=== PATIENT | male | born 1940 | race Caucasian/White ===

== ENCOUNTER 2018-11-16 08:45 | Inpatient (IN) | payer MEDICARE, BC | END 2018-11-19 11:50 | disposition home or self-care (01) | LOC: PAS IN 08:45 → ORTHO 4S 15:25 | DX: M16.11 Unilateral primary osteoarthritis, right hip (principal); D62 Acute posthemorrhagic anemia; I48.2 Chronic atrial fibrillation; Z79.01 Long term (current) use of anticoagulants ==

== ENCOUNTER 2019-03-03 08:50 | Outpatient (CLI) | payer MEDICARE, BC ==
[~2019-03-03 08:50] MED LIST: ACET-1008 PO; BENA1TAB13 PO; DABI75CA3 PO; METF1000 PO; METO50TA7 PO; PIOG30TA71 PO; SIMV10TA6 PO
== END 2019-03-03 23:59 | disposition home or self-care (01) ==
LOC: VAS 08:50
PROVIDERS: ATTEND Pediatrics Sports Medicine
DX: M79.661 Pain in right lower leg (principal); R60.0 Localized edema; M16.11 Unilateral primary osteoarthritis, right hip; I10 Essential (primary) hypertension; E11.9 Type 2 diabetes mellitus without complications
CPT/HCPCS: 93971

== ENCOUNTER 2025-08-08 16:15 | Emergency (ER) | payer MEDICARE, BC ==
[~2025-08-08] VITALS: Ht 170.2 cm; Wt 101.0 kg
[~2025-08-08 16:15] MED LIST changes: -BENA1TAB13 PO; +BENA1TAB86 PO; -SIMV10TA6 PO; +SIMV10TA98 PO
[2025-08-08] MEDS: LIDOcaine 2% Viscous 15ml cup MM ONE (16:34)
[2025-08-08] MEDS: mag hydrox/Alum hydrox/simeth 30ml oral suspension PO ONE (16:35)
--- NOTE | 2025-08-08 16:50 | ELECTROCARDIOGRAPH REPORT ---
[facility] Test Date: 2025-08-08 Test Time: 16:48:03 Pat Name: JOSELITO DELUNA Department: [facility]- Patient ID: [facility]-[id number] Room: Gender: M Hydraulic Repairer: : 1940 Requested By: LYNN CHUNG Order Number: [id number] Reading MD: Dr. Naman Pollard Measurements Intervals [place] Rate: 67 P: 0 AR: 0 QRS: -60 QRSD: 124 T: 45 QT: 436 QTc: 461 Interpretive Statements Atrial fibrillation RBBB and LAFB Electronically Signed On 08-08-2025 20:35:[address] Naman Pollard Please click the below link to view image of tracing.
[2025-08-08 17:00] LABS: MEAN PLATELET VOLUME 8.1 FL (7.4-10.4); RED CELL DISTRIBUTION WIDTH 14.7 % (11.5-14.5)
[2025-08-08 17:12] LABS: CREATININE 1.65 MG/DL (0.60-1.10); TOTAL CARBON DIOXIDE 29.8 MMOL/L (24-32); eCRCL 31 ML/MIN; eGFR 40 ML/MIN
[2025-08-08] MEDS ORDERED: iohexol 300mg/ml 100ml inj. ONE (17:12)
--- NOTE | 2025-08-08 18:09 | Physician Documentation ---
History of Present Illness ~ Chief Complaint: Abdominal Pain Stated Complaint: ABDOMINAL PAIN Time Seen by MD: 18:04 Mode of Arrival: EMS HPI Patient presents to the emergency room for evaluation of epigastric pain. No prior history. Pain had resolved by the time he made it to the emergency room by EMS. He reports regular bowel movements. Patient did state he took some Apple s and feels it may have relieved his symptoms. Denies chest pain. Medication Reconciliation Allergies: Coded Allergies: No Known Allergies (Unverified , 08/08/25) Scheduled Acetaminophen (Tylenol), 650 MG PO Q4H PRN PAIN, (Reported) Benazepril/Hydrochlorothiazide (Benazepril-Hctz 10-12.5 mg Tab), 1 TAB PO DAILY, (Reported) Dabigatran* (PRADAXA capsule*), 2 CAP PO BID, (Reported) Metformin Hcl* (Glucophage*), 1 TAB PO Q12H, (Reported) Metoprolol Succinate* (Toprol Xl*), 1 TAB PO DAILY, (Reported) Pioglitazone Hcl (Pioglitazone Hcl), 1 TAB PO DAILY, (Reported) Simvastatin (Simvastatin), 1 TAB PO DAILY, (Reported) Review of Systems All Other Systems at this time: Reviewed and Negative Physical Exam Vital Signs: Temperature: 97.6, Source: Oral, Heart Rate: 71, Respiratory Rate: 18, BP: 164/82, Pulse Oximetry: 98, Weight: 101.000 Physical Exam General: Patient is awake, alert, oriented x4 in no acute distress and well appearing.~ Head: Normocephalic and atraumatic. Eyes: Conjunctival normal. EOMI. PERRL. ENT: Mucous membranes moist. Neck: Supple, trachea is midline. Chest: Clear to auscultation bilaterally without rales, rhonchi, or wheezes. There is no accessory muscle use or retractions. Cardiac: RRR without murmurs, gallops, or rubs. Abd: Soft, nondistended, nontender, with normoactive bowel sounds. No guarding, rebound, or rigidity. Progress Progress Note Attend to MRCP failed that has patient was not able to tolerate the MRI machine Results/Orders Results/Orders Orders - MELCHOR FRENCH MD Ultrasound Of Abdomen (08/08/25 18:15) MRCP (08/08/25 18:30) Zosyn 3.375 Gm In 50ml Ns (08/08/25 21:25) Completed Orders - MELCHOR FRENCH MD Ultrasound Of Abdomen (08/08/25 18:15) CMP (08/08/25 19:32) Medications Received in ER Medications (Trade) Dose Ordered Sig/Padma Route PRN Reason Start Time Stop Time Status Last Admin Dose Admin (Maalox oral suspension) 30 ml ONCE ONCE PO 08/08/25 16:30 08/08/25 16:31 DC 08/08/25 16:35 30 ML (Bentyl capsule) 20 mg ONCE ONCE PO 08/08/25 16:30 08/08/25 16:31 DC 08/08/25 16:35 20 MG (Xylocaine 2% Viscous 15mL cup) 20 ml ONCE ONCE MM 08/08/25 16:30 08/08/25 16:31 DC 08/08/25 16:34 20 ML Vital Signs 08/08/25 08/08/25 08/08/25 08/08/25 16:20 17:59 19:35 20:28 Temp 97.6 97.6 97.6 Pulse 67 71 70 68 Resp 20 18 18 14 B/P (MAP) 157/70 164/82 (109) 155/78 (103) 166/77 (106) Pulse Ox 96 98 96 96 O2 Flow Rate 0 0 Laboratory Tests Test 08/08/25 16:24 08/08/25 17:52 08/08/25 18:21 08/08/25 20:05 White Blood Count 6.6 Red Blood Count 4.17 L Hemoglobin 14.4 Hematocrit 41.3 L Mean Corpuscular Volume 98.8 H Mean Corpuscular Hemoglobin 34.5 H Mean Corpuscular Hemoglobin Concent 34.9 Red Cell Distribution Width 14.7 H Platelet Count 168 Mean Platelet Volume 8.1 Neutrophils (%) (Auto) 65.8 Lymphocytes (%) (Auto) 21.5 Monocytes (%) (Auto) 9.0 Eosinophils (%) (Auto) 2.8 Basophils (%) (Auto) 0.9 Neutrophils # (Auto) 4.3 Lymphocytes # (Auto) 1.4 Monocytes # (Auto) 0.6 Eosinophils # (Auto) 0.2 Basophils # (Auto) 0.1 CBC Comment Sodium Level 137 137 Potassium Level 4.1 3.9 Chloride Level 101 102 Carbon Dioxide Level 29.8 27.1 Anion Gap 6 L 8 Blood Urea Nitrogen 25 H 24 H Creatinine 1.65 H 1.55 H Estimated GFR/1.73 m2 40 43 BUN/Creatinine Ratio 15.2 15.5 Glucose Level 134 H 115 H Calcium Level 9.1 8.9 Total Bilirubin 2.8 H 2.6 H Aspartate Amino Transf (AST/SGOT) 44 H 61 H Alanine Aminotransferase (ALT/SGPT) 25 40 Alkaline Phosphatase 105 107 Troponin I High Sensitivity 28 29 Total Protein 8.1 7.7 Albumin 3.9 3.7 Globulin 4.2 4.0 Albumin/Globulin Ratio 0.9 L 0.9 L Amylase Level 67 Lipase 38 Chemistry Comments Urine Specimen Description Cln catch midstream Urine Color Yellow Urine Clarity Clear Urine pH 5.5 Urine Specific [place] 1.020 Urine Protein Trace Urine Glucose (UA) >=1000 H Urine Ketones Negative Urine Occult Blood Negative Urine Nitrite Negative Urine Bilirubin Negative Urine Urobilinogen 0.2 Urine Leukocyte Esterase Negative Urine RBC 0-2 Urine WBC 0-4 Urine Squamous Epithelial Cells Few Urine Bacteria None seen Urine Mucus Few Urine Culture Indicated Not ind Volume Urine Centrifuged 10 ml Urine Comment Troponin I High Sens Percent Delta 3 Troponin I Hi Sens Absolute Change 1 EKG/XRAY/CT/US/VASC/MRI EKG : Additional Comment EKG interpreted by myself shows time of 1648, rate 67, sinus rhythm, left axis deviation, no ST changes Medical Decision Making Additional information obtaine: old records Findings Patient continues to be pain-free. He presented to the emergency room with abdominal pain. Differentials include but are not limited to gastritis cholecystitis diverticulitis small-bowel obstruction pancreatitis therefore emergent labs and imaging ordered. CT scan shows common bile duct dilation therefore ultrasound and MRCP were ordered. Ultrasound was negative for cholecystitis but did show a dilated common bile duct. MRCP was attempted however patient was unable to tolerate MRCP. As patient is pain-free the thought that patient may have passed the stone given the location seen on CT therefore repeat CMP was performed which shows a decreasing bilirubin. This combined with the patient's lack of any discomfort I feel the patient's common bile duct stone that has passed. Patient feels comfortable going home with close follow up with ER precautions discussed thoroughly with the patient and family member at bedside. Specifically regarding return of pain or fevers. Given risks versus benefit antibiotics initiated. Spoke specifically about being re-evaluated by primary care tomorrow Diff Dx GI Bleed:Consideration: Include: AE fistula, Angiodysplasia, Bleeding diathesis, Blood loss anemia, Carcinoma, Diverticulosis, Diverticulitis, Eso phageal varicies, Esophagitis, Gastritis, Gastroenteritis, Inflammatory BD, Jessica-March syndrome, Meckel's diverticulum, PUD, Other Diff Dx Pain:Considerations: Include: AAA, Angina/WV, Aortic dissection, Appendicitis, Bowel obstruction, Cholangitis, Cholecystitis, Cholelithasis, Constipation, Diverticular disease, Esophageal rupture, Esophagitis, Gastritis, Gastroenteritis, GI hemorrhage, Hepatitis, Hernia, Inflammatory BD, Ischemic bowel, Mass, Pancreatitis, Porphyria, PUD, Testicular torsion, Trauma, intraabdominal, Urinary obstruction, Urinary tract infection, Urolithiasis, Other Diff Dx N/V/D:Considerations: Include: Appendicitis, Bowel obstruction, Dehydration, DKA, Diarrhea - bacterial, Diarrhea - parasitic, Diarrhea - viral, Diverticulitis, Diverticulosis, Drug toxicity, Electrolyte imbalance, Food poisoning, Gastroenteritis, GE reflux, GI bleed, Hepatitis, Hernia, Hypovolemia, Hypotension, Inflammatory BD, Impaction, Malnutrition, Pancreatitis, PUD, Renal failure, Urinary obstruction, UTI, Urolithiasis, Other Diff Dx Rectal:Considerations: Include: Fissure, Fistula, Foreign body, Impaction, Perirectal abscess, Prostatitis, Rectal prolapse, Subcutaneous abscess, Thrombosed hemorrhoid, Ulcer, UTI, Other Departure Disposition: 01 HOME / SELF CARE / HOMELESS Impression: Primary Impression: Abdominal pain Additional Instructions: You are to follow up tomorrow for re-evaluation by your primary care provider. You had some findings concerning for something called choledocholithiasis. You must return for any fevers or return of abdominal pain. Given risk vs benefit I'm starting an antibiotic. In addition, your CT scan showed some abnormal findings in your spine and in your kidneys. This is of indeterminate sig nificance. You will need to follow up for additional imaging with your doctor as this could always represent anything from cancer to nothing of significance. Referrals: NO PRIMARY CARE PROVIDER (PCP) Prescriptions Amox Tr/Potassium Clavulanate (Augmentin 875-125 Tablet) 1 Each Tablet 1 TAB PO Q12H for 10 Days, #20 TAB Prov: MELCHOR FRENCH MD 08/08/25 Signature Scribe Signature: no scribe Attestation: The note accurately reflects work and decisions made by me.Mlechor French MD 08/08/25 21:29 MELCHOR FRENCH MD Aug 08, 2025 18:09
--- NOTE | 2025-08-08 18:13 | RADIOLOGY REPORT ---
Indication: upper abd pain Technique: CT axial images of the abdomen and pelvis are obtained with intravenous contrast. Coronal and sagittal reformats were obtained. Radiation Dose Information: CTDI volume is 18.3 mGy. Dose-length product is 915 mGy*cm Comparison: None FINDINGS: Cardiomegaly markedly enlarged right heart. Coronary artery calcification disease. Bibasilar atelectasis. Adrenal glands, spleen unremarkable. Calculus in the distal CBD near the ampullary region measuring 8 mm. No hypoenhancing pancreatic lesion. Cholelithiasis. Dilated CBD measuring 8 mm. No enhancing hepatic lesion. Kidneys demonstrate no hydronephrosis. Bilateral renal cysts including septated right renal cyst measuring 5.7 cm. Stomach is partially distended. Small bowel loops are moderately distended. Colonic diverticular disease. Moderate volume stool in the colon. Normal appendix. Abdominal aortic atherosclerotic disease. Bladder is partially distended. Prostate measures 6 cm transversely. No free pelvic fluid. No inguinal lymphadenopathy. Right hip arthroplasty. Moderate 2 severe degenerate changes left hip. Moderate to severe lumbar degenerative disc disease. 1.5 cm L3 lytic lesion. IMPRESSION: Cholelithiasis. Choledocholithiasis with a 8 mm calcified calculus of the distal cBD/periampullary region. Recommend GI consultation for further evaluation. CBD dilated to 8 mm. Cardiomegaly. Right heart enlargement. Colonic diverticular disease. Moderate volume stool in the colon. Prostatomegaly. Correlate with PSA levels. 1.3 cm L3 lytic lesion. Correlate for metastases, myeloma, hemangioma, cyst. Recommend MRI lumbar spine with and without contrast to evaluate. Multiple bilateral renal cysts including right renal septated cyst measuring 5.7 cm. Recommend follow-up CT abdomen pelvis with contrast in 6 months. Other findings as described.
[2025-08-08 18:35] LABS: LEUKOCYTE ESTERASE ,URINE NEGATIVE (Neg); NITRITES, URINE NEGATIVE (Neg); OCCULT BLOOD,URINE NEGATIVE (Neg)
[2025-08-08 18:42] LABS: UA COLLECTION TYPE CLN CATCH MIDSTREAM
[2025-08-08 18:43] LABS: SQUAMOUS EPITHELIAL CELL,UR FEW /LPF (FEW)
[2025-08-08 18:45] LABS: MUCUS STRANDS FEW /LPF (Neg)
--- NOTE | 2025-08-08 19:47 | RADIOLOGY REPORT ---
EXAM: US ULTRASOUND OF ABDOMEN HISTORY: abd pain COMPARISON: CT CT ABDOMEN PELVIS W/ IV CONTRAST on DOS: 08/08/25 TECHNIQUE: Multiple longitudinal and transverse sonographic images of the abdomen were obtained. Doppler was applied as indicated. FINDINGS: [PANCREAS]: The visualized portions of the pancreas are unremarkable. [AORTA]: Normal [LIVER]: 17.6 cm. increased echogenicity. There is no focal hepatic mass lesion detected. [GALLBLADDER]: Gallbladder wall measures 0.3 cm. Mobile stones. Negative sonographic Ochoa's sign. [BILIARY TREE]: Common bile duct measures 0.7 cm in diameter. no intrahepatic biliary ductal dilatation. [ASCITES]: No free fluid is demonstrated. [VESSELS]: The main portal vein is patent on color Doppler evaluation. The inferior vena cava is patent on color Doppler evaluation. [RIGHT KIDNEY]: 9.7 x 5.1 x 5.3 cm. normal cortical echogenicity and normal contour. No hydronephrosis. Benign-appearing cysts measuring up to 4.6 cm. IMPRESSION: 1. Mobile cholelithiasis without sonographic evidence of acute cholecystitis. 2. Dilated common bile duct.
[2025-08-08 20:32] LABS: CREATININE 1.55 MG/DL (0.60-1.10); TOTAL CARBON DIOXIDE 27.1 MMOL/L (24-32); eCRCL 33 ML/MIN; eGFR 43 ML/MIN
[2025-08-08] MEDS ORDERED: AMOX-117 PO (21:28)
[2025-08-08] MEDS: piperacillin/tazo 3.375gm/50ml 50 ML IV ONE (21:35)
[2025-08-08 22:16] VITALS: BP 164/85; PULSE 68; RESP 16; TEMP 97.6; O2SAT 96
== END 2025-08-08 22:20 | disposition home or self-care (01) ==
LOC: ER 16:16
DX: R10.13 Epigastric pain (principal); I48.91 Unspecified atrial fibrillation; Z79.899 Other long term (current) drug therapy
CPT/HCPCS: 36415; 74177; 76700; 80053; 81001; 82150; 83690; 84484; 85025; 93005; 96365; 99285; J2543; Q9967